=== PATIENT | female | born 1975 | race Caucasian/White ===

== ENCOUNTER 2022-09-08 19:57 | Emergency (ER) | payer MEDICAID ==
[~2022-09-08] VITALS: Ht 165.1 cm; Wt 59.0 kg
[2022-09-08] MEDS ORDERED: ZITHROMAX250 MG PO (22:48)
[2022-09-08] MEDS ORDERED: BENZONATATE100 MG PO (22:48)
--- OUTSIDE RECORDS SUMMARY | 2022-09-08 23:18 | XMS ---
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 E.DCherelle VISIT COUNT (12 MO.) 2 [facility] Delicia Savage [address] [place] [address] TOTAL 3 NOTE: Visits indicate total known visits. ED/C VISIT TRACKING (12 MO.) 09/08/2022 19:58 [facility] [place] TYPE: Emergency COMPLAINT: - CHEST PAIN 09/02/2022 17:30 [facility] [place] TYPE: Emergency DIAGNOSES: - Thrombocytopenia, unspecified - Shortness of Breath - trouble breathing, chest pain, legs and feet swollen - Edema - Influenza due to other identified influenza virus with other respiratory manifestations 11/02/2021 23:17 [facility] [place] TYPE: Emergency DIAGNOSES: - Tachycardia, unspecified - Shortness of Breath - Raynaud's syndrome with gangrene - Headache (Adult - New Onset Or New Symptoms) - Acute upper respiratory infection, unspecified - SOB flu symptoms INPATIENT VISIT TRACKING (12 MO.) No inpatient visits to display in this time frame [email or web address]
--- NOTE | 2022-09-10 16:13 | EKG ---
[facility] [address] [facility] [place], [place] [address] Signed Sinus tachycardia Possible Left atrial enlargement Left ventricular hypertrophy with QRS widening ( Jack product ) Abnormal ECG No previous ECGs available Confirmed by STEPHANIA PARMAR MD ([id number]) on 09/10/2022 4:12:45 PM Electronically Signed By: STEPHANIA PARMAR MD 09/10/22 1613 PATIENT NAME: RIGOBERTO MORROWMIRIAM ALTMANE Electrocardiogram DATE OF : 73 PHYSICIAN: STEPHANIA PARMAR MD REPORT #: [id number] REPORT IS CONFIDENTIAL AND NOT TO BE RELEASED WITHOUT AUTHORIZATION
== END 2022-09-08 23:10 | disposition home or self-care (01) ==
LOC: ED 19:57
DX: R07.89 Other chest pain (principal); J40 Bronchitis, not specified as acute or chronic; F15.90 Other stimulant use, unspecified, uncomplicated; I50.9 Heart failure, unspecified
CPT/HCPCS: 36415; 71045; 71260; 80053; 81001; 83735; 83880; 84484; 85025; 85379; 87077; 87088; 87186; 93005; 93010; 96360; 96361; 99285-25; J7121; Q9967

== ENCOUNTER 2023-04-27 22:11 | Emergency (ER) | payer OTHER ==
[~2023-04-27] VITALS: Ht 165.1 cm; Wt 64.7 kg
[~2023-04-27 22:11] MED LIST: BENZONATATE100 MG PO; ZITHROMAX250 MG PO
[2023-04-27] MEDS ORDERED: BACTRIM DS TAB1 EACH PO (22:59)
[2023-04-27 23:12] VITALS: BP 151/89
== END 2023-04-27 23:14 | disposition home or self-care (01) ==
LOC: ED 22:11
DX: L03.116 Cellulitis of left lower limb (principal); I50.9 Heart failure, unspecified; Z88.0 Allergy status to penicillin; Z88.8 Allergy status to other drugs, medicaments and biological substances; Z88.6 Allergy status to analgesic agent; Z79.899 Other long term (current) drug therapy
CPT/HCPCS: A9270